=== PATIENT | female | born 1990 | race Caucasian/White ===

== ENCOUNTER 2017-12-05 16:16 | Emergency (ER) | payer BC ==
[~2017-12-05] VITALS: Ht 170.2 cm; Wt 95.3 kg
[~2017-12-05 16:16] MED LIST: ATARAX25 MG PO; ATIVAN0.5 MG PO; ATIVAN1 MG PO; B12,B-12,B 12500 MC1 PO; BACTRIM DS 8001 TA1 PO; BENADRYL25 MG PO; BIAXIN500 MG PO; CIPRO250 MG PO; CIPRO500 MG PO; CLARITIN10 MG PO; CONTRAVE1 TER PO; CYCLOBENZAPRINE5 M3 PO; DIFLUCAN150 MG PO; FLONASE0.05 MG/AC NS; IBUPROFEN PO; LAMICTAL ODT PA1 OD1 PO; LAMICTAL25 MG PO; LIDEX0.05% T; LORAZEPAM0.5 MG PO; MOTRIN800 MG PO; Motrin,Rufen800 MG PO; NAPROSYN500 MG PO; NORFLEX PO; PERCOCET 325 MG1 TAB PO; PRILOSEC20 MG PO; PROTONIX20 MG PO; PROZAC10 MG PO; SEROQUEL50 MG PO; TRAMADOL HCL50 MG PO; ULTRAM50 MG PO; VICO75300 PO; VOLTAREN50 M1 PO; WELLBUTRIN75 MG PO; ZANTAC 150150 MG PO; ZOFRAN ODT4 MG SL; ZOLOFT100 MG PO; Zofran4 MG PO
[2017-12-05 16:56] LABS: BASO % 0.1 % (0.0-1.0); EOS % 0.5 % (1.0-4.0); HEMATOCRIT 38.7 % (37.0-47.0); HEMOGLOBIN 12.9 g/dl (12.0-16.0); LYMPH # 1.5 10*3/uL (1.3-4.4); LYMPH % 17.4 % (27.0-41.0); MEAN CELL VOLUME 89.6 fl (81.0-99.0); MEAN CORPUSCULAR HGB 29.9 pg (27.0-31.0); MEAN CORPUSCULAR HGB CONC 33.3 g/dl (33.0-37.0); MEAN PLATELET VOLUME 10.5 fl (9.6-12.3); MONO # 0.6 10*3/uL (0.1-1.0); MONO % 6.4 % (3.0-9.0); NEUT # 6.4 10*3/uL (2.3-7.9); NEUT % 75.2 % (47.0-73.0); PLATELET COUNT AUTOMATED 263 10*3/uL (130-400); RED BLOOD COUNT 4.32 10*6/uL (4.10-5.10); RED CELL DISTRI WIDTH 11.9 % (0-14.5); WHITE BLOOD COUNT 8.6 10*3/uL (4.8-10.8)
[2017-12-05 17:13] LABS: ALBUMIN 4.3 gm/dl (3.1-4.5); ALKALINE PHOSPHATASE 61 U/L (45-117); BUN 10 mg/dl (7-24); CHLORIDE 104 mmol/L (98-107); CREATININE 0.89 mg/dL (0.55-1.02); POTASSIUM 3.7 mmol/L (3.5-5.1); SGOT/AST 14 IU/L (3-35); SGPT/ALT 23 U/L (12-78); SODIUM 139 mmol/L (136-145)
[2017-12-05 17:40] LABS: BILIRUBIN NEGATIVE (NEGATIVE); BLOOD 3+ (NEGATIVE); CLARITY SL CLOUDY (CLEAR); COLOR YELLOW (YELLOW); GLUCOSE NEGATIVE (NEGATIVE); KETONE NEGATIVE (NEGATIVE); LEUKO ESTERASE TRACE (NEGATIVE); NITRITE NEGATIVE (NEGATIVE); SPECIFIC GRAVITY >= 1.030 (1.005-1.030); UROBILINOGEN 0.2 E.U./dl (0.2-1.0)
[2017-12-05 17:47] LABS: BACTERIA 2+; EPITHELIAL CELLS TNTC; RBC TNTC rbc/hpf (0-2)
[2017-12-05] MEDS ORDERED: ZOFRAN ODT4 MG SL (19:10)
[2017-12-05] MEDS ORDERED: DICYCLOMINE HCL10 MG PO (19:10)
[2017-12-07] MEDS ORDERED: PROTONIX IV40 MG IV (08:18)
[2017-12-07] MEDS ORDERED: MACROBID100 M1 PO (09:44)
[2017-12-07] MEDS ORDERED: CARAFATE1 GM PO (09:45)
== END 2017-12-05 20:13 | disposition home or self-care (01) ==
LOC: ED 16:16
PROVIDERS: Nurse Practitioner Family
DX: K29.70 Gastritis, unspecified, without bleeding (principal); Z88.6 Allergy status to analgesic agent

== ENCOUNTER → 2017-12-07 | Day surgery (SDC) | payer BC ==
[~2017-12-07] VITALS: Ht 170.1 cm; Wt 95.3 kg
[~2017-12-07] MED LIST changes: +CARAFATE1 GM PO; +DICYCLOMINE HCL10 MG PO; +MACROBID100 M1 PO; +PROTONIX IV40 MG IV
--- NOTE | ~2017-12-07 | PROC NOTE ---
[place], [place] PROCEDURE NOTE NAME: DAWNA PATEL UNIT #: [id number] ROOM: DOCTOR: EMELYN FROST MD BIRTHDATE: [birth year] DOS: 12/07/2017 PREOPERATIVE DIAGNOSES: Epigastric pain, history of erosive esophagitis, gastritis. POSTOPERATIVE DIAGNOSIS: Gastritis. PROCEDURE: Esophagogastroduodenoscopy with antral biopsies times 2. ENDOSCOPIST: Emelyn Frost MD PHOTOSTAT OPERATOR: None. ANESTHESIA: MAC. INDICATIONS: This is a 27-year-old lady who has a history of previous EGD, which showed erosive gastritis and persistent epigastric abdominal pain who is here for the above-mentioned procedure. The procedure and its complications were explained to the patient in detail preoperatively. Complications that were discussed included but were not limited to bleeding, missed lesions and stomach perforation. She agreed to proceed. DESCRIPTION OF PROCEDURE: After identifying the patient, the patient was brought to the operating suite and laid in the left lateral position. After IV sedation was administered, a timeout procedure was called and a bite block was placed. An adult gastroscope was now introduced into the mouth and advanced sequentially into the pharynx, esophagus, stomach and the first 2 parts of the duodenum. The duodenum was found to be within normal limits. There was some bile that was encountered in the stomach. The area of the antrum had evidence of gastritis, which was mild. Two mucosal biopsies were taken in different areas and sent for histopathological diagnosis. Thereafter, the scope was retroflexed and the rest of the stomach was visualized. There was no evidence of any other ulcers, bleeding or gastritis seen in the rest of the stomach. Upon withdrawal of the scope, the esophagus was visualized and there was no evidence of hiatal hernia or erosive esophagitis that could be seen in the entirety of the esophagus. The scope was then withdrawn and the patient was brought back to the recovery room in stable fashion. Dr. Emelyn Frost, the attending endoscopist, was present throughout the operating case. There were no complications. [place], [place] PROCEDURE NOTE NAME: DAWNA PATEL UNIT #: [id number] ROOM: DOCTOR: EMELYN FROST MD BIRTHDATE: [birth year] Emelyn Frost MD CM:ROB:PROCEDURE NOTE [id number] EMELYN FROST MD
[2017-12-07 08:16] VITALS: BP 132/92
[2017-12-07 09:30] VITALS: BP 117/76
[2017-12-07 09:45] VITALS: BP 125/76
[2017-12-07 10:00] VITALS: BP 120/82
== END | disposition home or self-care (01) ==
LOC: SDC 07:58
DX: K29.50 Unspecified chronic gastritis without bleeding (principal); Z90.49 Acquired absence of other specified parts of digestive tract; Z98.890 Other specified postprocedural states; Z87.09 Personal history of other diseases of the respiratory system

== ENCOUNTER 2018-01-19 17:36 | Emergency (ER) | payer BC ==
[~2018-01-19] VITALS: Ht 170.1 cm; Wt 95.3 kg
[2018-01-19 18:17] LABS: HEMATOCRIT 44.2 % (37.0-47.0); HEMOGLOBIN 14.9 g/dl (12.0-16.0); MEAN CELL VOLUME 88.8 fl (81.0-99.0); MEAN CORPUSCULAR HGB 29.9 pg (27.0-31.0); MEAN CORPUSCULAR HGB CONC 33.7 g/dl (33.0-37.0); MEAN PLATELET VOLUME 10.5 fl (9.6-12.3); PLATELET COUNT AUTOMATED 217 10*3/uL (130-400); RED BLOOD COUNT 4.98 10*6/uL (4.10-5.10); RED CELL DISTRI WIDTH 11.8 % (0-14.5); WHITE BLOOD COUNT 8.3 10*3/uL (4.8-10.8)
[2018-01-19 18:33] LABS: ALBUMIN 4.6 gm/dl (3.1-4.5); ALKALINE PHOSPHATASE 70 U/L (45-117); BUN 12 mg/dl (7-24); CHLORIDE 98 mmol/L (98-107); CREATININE 0.86 mg/dL (0.55-1.02); LIPASE 90 U/L (73-393); POTASSIUM 3.2 mmol/L (3.5-5.1); SGOT/AST 19 IU/L (3-35); SGPT/ALT 32 U/L (12-78); SODIUM 135 mmol/L (136-145); TOTAL PROTEIN 8.3 gm/dL (6.4-8.2)
[2018-01-19 18:40] LABS: PLATELET SUFFICIENCY NORMAL (NORMAL); TOTAL CELLS COUNTED 100 #CELLS
[2018-01-19 19:08] LABS: BILIRUBIN 1+ (NEGATIVE); BLOOD NEGATIVE (NEGATIVE); CLARITY SL CLOUDY (CLEAR); COLOR YELLOW (YELLOW); GLUCOSE NEGATIVE (NEGATIVE); KETONE 3+ (NEGATIVE); LEUKO ESTERASE NEGATIVE (NEGATIVE); NITRITE NEGATIVE (NEGATIVE); PH 5.5 (5.0-9.0); SPECIFIC GRAVITY >= 1.030 (1.005-1.030); UROBILINOGEN 0.2 E.U./dl (0.2-1.0)
[2018-01-19 19:17] LABS: BACTERIA 2+; EPITHELIAL CELLS 51-100
[2018-01-19] MEDS ORDERED: ZOFRAN4 MG PO (19:21)
== END 2018-01-19 20:33 | disposition home or self-care (01) ==
LOC: ED 17:36
PROVIDERS: Nurse Practitioner Family
DX: K52.9 Noninfective gastroenteritis and colitis, unspecified (principal); R03.0 Elevated blood-pressure reading, without diagnosis of hypertension; Z90.49 Acquired absence of other specified parts of digestive tract; Z79.899 Other long term (current) drug therapy

== ENCOUNTER → 2018-04-03 | Outpatient (CLI) | payer OTHER ==
[~2018-04-03] MED LIST changes: +ZOFRAN4 MG PO
[2018-04-03 10:05] LABS: BASO % 0.5 % (0.0-1.0); EOS # 0.1 10*3/uL (0.0-0.4); HEMATOCRIT 38.7 % (37.0-47.0); HEMOGLOBIN 12.9 g/dl (12.0-16.0); LYMPH # 2.4 10*3/uL (1.3-4.4); LYMPH % 38.3 % (27.0-41.0); MEAN CELL VOLUME 89.2 fl (81.0-99.0); MEAN CORPUSCULAR HGB 29.7 pg (27.0-31.0); MEAN CORPUSCULAR HGB CONC 33.3 g/dl (33.0-37.0); MEAN PLATELET VOLUME 10.4 fl (9.6-12.3); MONO # 0.4 10*3/uL (0.1-1.0); NEUT # 3.3 10*3/uL (2.3-7.9); PLATELET COUNT AUTOMATED 279 10*3/uL (130-400); RED BLOOD COUNT 4.34 10*6/uL (4.10-5.10); RED CELL DISTRI WIDTH 11.9 % (0-14.5); WHITE BLOOD COUNT 6.2 10*3/uL (4.8-10.8)
[2018-04-03 10:44] LABS: ALBUMIN 4.1 gm/dl (3.1-4.5); BUN 12 mg/dl (7-24); CHLORIDE 106 mmol/L (98-107); CHOLESTEROL 118 mg/dL (<200); CREATININE 0.82 mg/dL (0.55-1.02); POTASSIUM 3.8 mmol/L (3.5-5.1); SGOT/AST 10 IU/L (3-35); SGPT/ALT 23 U/L (12-78); SODIUM 139 mmol/L (136-145); TRIGLYCERIDES 86 mg/dl (<150); VLDL CHOLESTEROL 17 mg/dL (6-40)
[2018-04-03 11:05] LABS: ALKALINE PHOSPHATASE 69 U/L (45-117); HDL CHOLESTEROL 43 mg/dl (40-60); LDL CHOLESTEROL 58 mg/dL (9-159); TOTAL PROTEIN 7.6 gm/dL (6.4-8.2)
== END | disposition home or self-care (01) ==
LOC: LAB 09:40
PROVIDERS: Internal Medicine
DX: E66.09 Other obesity due to excess calories (principal)

== ENCOUNTER → 2020-07-28 | Outpatient (CLI) | payer OTHER | END | disposition home or self-care (01) | LOC: COVID19 02:10 | PROVIDERS: ATTEND Nurse Practitioner Family | DX: Z20.828 Contact with and (suspected) exposure to other viral communicable diseases (principal); J02.9 Acute pharyngitis, unspecified; R43.2 Parageusia; Z98.2 Presence of cerebrospinal fluid drainage device ==